=== PATIENT | female | born 1955 | race Two or more races ===

== ENCOUNTER → 2020-01-15 | Outpatient (CLI) | payer OTHER ==
--- NOTE | 2020-01-15 10:16 | RADIOLOGY REPORT (SQ) ---
EXAM DESCRIPTION: U/S ABDOMEN COMPLETE W/DOPPLER IMAGES COMPLETED DATE/TIME: 01/15/2020 9:09 am REASON FOR STUDY: ELEVATED FERRITIN (R79.89) R79.89 OTHER SPECIFIED ABNORMAL FINDINGS OF BLOOD CHEM ISTRY COMPARISON: None. TECHNIQUE: Dynamic and static grayscale images acquired of the abdomen and recorded on PACS. Additio nal selected color Doppler and spectral images recorded. Note: Study does not meet criteria for complete doppler/duplex scan LIMITATIONS: None. FINDINGS: PANCREAS: No masses. Visualized pancreatic duct normal caliber. LIVER: No masses. Echotexture normal. LIVER VASCULATURE: Normal directional flow of the main portal vein and hepatic veins. GALLBLADDER: Surgically absent. ULTRASOUND-DETECTED HENDERSON'S SIGN: Not applicable. INTRAHEPATIC DUCTS AND COMMON DUCT: CBD and intrahepatic ducts normal caliber. No filling defects. INFERIOR VENA CAVA: Normal flow. AORTA: No aneurysm. RIGHT KIDNEY: Normal size measuring 11.2 cm Normal echogenicity. No solid or suspicious masses. No hydronephrosis. No calcifications. LEFT KIDNEY: Mild asymmetrically small measuring 9.8 cm. Normal echogenicity. No solid or suspic ious masses. No hydronephrosis. No calcifications. SPLEEN: Normal size measuring 8.1 cm. No solid masses. PERITONEAL AND PLEURAL SPACES: No ascites or effusions. OTHER: No other significant finding. IMPRESSION: Prior cholecystectomy. Otherwise, unremarkable abdominal ultrasound. TECHNICAL DOCUMENTATION: JOB ID: [id number] [employer]- All Rights Reserved Reading location - IP/workstation name: [email or web address]
== END ==
LOC: RAD 07:09
PROVIDERS: ATTEND Nurse Practitioner Family
DX: R79.89 Other specified abnormal findings of blood chemistry (principal)
CPT/HCPCS: 76700; 93976